=== PATIENT | female | born 1990 | race Caucasian/White ===

== ENCOUNTER 2020-06-26 10:39 | Emergency (ER) | payer SELFPAY ==
[2020-06-26] MEDS ORDERED: ONDANSETRON 4 MG/2 ML VIAL ONE (11:13)
[2020-06-26] MEDS ORDERED: NA CHLORIDE 0.9% 1,000 ML ONE (11:13)
[2020-06-26 11:27] LABS: Urine Blood NEGATIVE (NEG); Urine Glucose NEGATIVE (NEG); Urine Protein NEGATIVE (NEG); Urine Specific Gravity >1.030 (1.005-1.030)
[2020-06-26 11:34] LABS: Absolute Lymphocytes (CBC) 1.1 K/uL (0.7-4.9); Basophils % 0.3 % (0-1.3); Hematocrit 45.2 % (36.0-45.0); Lymphocytes % 11.6 % (15.3-44.8); MPV 9.2 fL (7.6-11.3); RBC Red Blood Cell Count 5.13 M/uL (3.86-4.86)
[2020-06-26 11:50] LABS: Albumin 3.9 g/dL (3.4-5.0); Bilirubin Direct 0.2 mg/dL (0-0.2); Bilirubin Total 0.7 mg/dL (0.2-1.0)
--- NOTE | 2020-06-26 12:01 | ER ---
Nurse's Notes [facility] Name: Bessie Espinosa Age: 30 yrs Sex: Female : 1990 Arrival Date: 06/26/2020 Time: 10:42 Bed 20 Private MD: Diagnosis: Upper abdominal pain, unspecified;Nausea with vomiting, unspecified Presentation: 06/26 10:46 Chief complaint: Patient states: Severe upper abd pain with N/V/D since 4 am. No fever. ll1 Coronavirus screen: Client denies travel out of the [place] in the last 14 days. At this time, the client does not indicate any symptoms associated with coronavirus-19. Ebola Screen: Patient denies travel to an Ebola-affected area in the 21 days before illness onset. Initial Sepsis Screen: Does the patient meet any 2 criteria? HR > 90 bpm. No. Patient's initial sepsis screen is negative. Risk Assessment: Do you want to hurt yourself or someone else? Patient reports no desire to harm self or others. Onset of symptoms was June 26, 2020. 10:46 Method Of Arrival: Ambulatory 1 10:46 Acuity: JASON 3 ll1 Triage Assessment: 10:50 General: Appears in no apparent distress. uncomfortable, Behavior is cooperative, bp appropriate for age, anxious. Pain: Complains of pain in abdomen. EENT: No deficits noted. Neuro: No deficits noted. Cardiovascular: No deficits noted. Respiratory: No deficits noted. GI: Reports nausea, vomiting. : No signs and/or symptoms were reported regarding the genitourinary system. Derm: No deficits noted. Musculoskeletal: No deficits noted. Historical: - Allergies: 10:48 No Known Allergies; ll1 - PMHx: 10:48 gastric issues; ll1 - PSHx: 10:48 ; ll1 - Immunization history:: Flu vaccine is not up to date. - Social history:: Smoking status: Patient reports the use of cigarette tobacco products, smokes one-half pack cigarettes per day. Screenin:16 Abuse screen: Denies threats or abuse. Denies injuries from another. Nutritional bp screening: No deficits noted. Tuberculosis screening: No symptoms or risk factors identified. Fall Risk None identified. Assessment: 10:50 General: SEE TRIAGE NOTE. bp 11:50 Reassessment: ALL CURRENT ORDERS COMPLETED, VS STABLE ON MONITOR. bp 12:32 Reassessment: PT D/C HOME AMBULATORY, DX WITH UPPER ABDOMINAL PAIN. bp 12:34 GI: Bowel sounds present X 4 quads. bp Vital Signs: 10:46 BP 120 / 97; Pulse 100; Resp 17; Temp 98.9; Pulse Ox 99% ; Weight 58.97 kg; Height 5 ll1 ft. 2 in. (157.48 cm); Pain 0/10; 11:16 BP 137 / 105; Pulse 72; Resp 16; Pulse Ox 99% ; bp 11:50 BP 103 / 74; Pulse 71; Resp 16; Pulse Ox 100% ; bp 10:46 Body Mass Index 23.78 (58.97 kg, 157.48 cm) ll1 ED Course: 10:42 Patient arrived in ED. mr 10:43 Lexa Cuca, [facility]K [facility]. kb 10:43 Kel Hernandez MD is Attending Physician. kb 10:47 Triage completed. ll1 10:48 Arm band placed on Patient placed in an exam room, on a stretcher. ll1 10:55 Richardson Middleton, RN is Primary Nurse. bp 11:13 Inserted saline lock: 22 gauge in right forearm, using aseptic technique. Blood bp collected. 11:16 Patient has correct armband on for positive identification. Bed in low position. Call bp light in reach. Side rails up X2. 12:32 No provider procedures requiring assistance completed. IV discontinued, intact, bp bleeding controlled, No redness/swelling at site. Pressure dressing applied. Administered Medications: 11:13 Drug: NS 0.9% 1000 ml Route: IV; Rate: 1000 ml; Site: right forearm; bp 12:34 Follow up: IV Status: Completed infusion; IV Intake: 1000ml bp 11:13 Drug: Zofran (Ondansetron) 4 mg Route: IVP; Site: right forearm; bp 11:52 Follow up: Response: Nausea is decreased bp Intake: 12:34 IV: 1000ml; Total: 1000ml. bp Outcome: 12:00 Discharge ordered by . kb 12:33 Discharged to home ambulatory. bp 12:33 Condition: stable 12:33 Discharge instructions given to patient, Instructed on discharge instructions, follow up and referral plans. the need for admit, medication usage, Demonstrated understanding of instructions, follow-up care, medications, Prescriptions given X 2. 12:34 Patient left the ED. bp Signatures: Cuca Lindquist, Nathaly Ricketts Brian, RN RN bp Agnes Floyd RN RN ll1
--- NOTE | 2020-06-26 12:01 | EDPHYS ---
Physician Documentation [facility] Name: Bessie Espinosa Age: 30 yrs Sex: Female : 1990 Arrival Date: 06/26/2020 Time: 10:42 Bed 20 Private MD: ED Physician Kel Hernandez HPI: 06/26 11:58 This 30 yrs old Female presents to ER via Ambulatory with complaints of kb Abdominal Pain, Vomiting. 11:58 The patient presents with abdominal pain in the upper abdomen. Onset: The kb symptoms/episode began/occurred this morning. The symptoms do not radiate. Associated signs and symptoms: Pertinent positives: nausea, vomiting, and diarrhea, Pertinent negatives: fever. The symptoms are described as intermittent. Modifying factors: The symptoms are alleviated by nothing, the symptoms are aggravated by nothing. Severity of pain: At its worst the pain was moderate in the emergency department the pain has resolved. The patient has experienced similar episodes in the past, multiple times. The patient has not recently seen a physician. Pt reports intermittent n/v/d and upper abd pain that started this morning. States this has happened several times in the past and the GI cannot figure out why. This time the pain was worse than it had been in a while so she came in to get treatment.. Historical: - Allergies: 10:48 No Known Allergies; ll1 - PMHx: 10:48 gastric issues; ll1 - PSHx: 10:48 ; ll1 - Immunization history:: Flu vaccine is not up to date. - Social history:: Smoking status: Patient reports the use of cigarette tobacco products, smokes one-half pack cigarettes per day. ROS: 11:58 Constitutional: Negative for fever, chills, and weight loss, Cardiovascular: Negative kb for chest pain, palpitations, and edema, Respiratory: Negative for shortness of breath, cough, wheezing, and pleuritic chest pain, Back: Negative for injury and pain, MS/Extremity: Negative for injury and deformity, Skin: Negative for injury, rash, and discoloration, Neuro: Negative for headache, weakness, numbness, tingling, and seizure. 11:58 Abdomen/GI: Positive for abdominal pain, nausea, vomiting, and diarrhea, Negative for constipation, abdominal distension. Exam: 11:58 Constitutional: This is a well developed, well nourished patient who is awake, alert, kb and in no acute distress. Head/Face: Normocephalic, atraumatic. Chest/axilla: Normal chest wall appearance and motion. Nontender with no deformity. No lesions are appreciated. Cardiovascular: Regular rate and rhythm with a normal S1 and S2. No gallops, murmurs, or rubs. Normal PMI, no JVD. No pulse deficits. Respiratory: Lungs have equal breath sounds bilaterally, clear to auscultation and percussion. No rales, rhonchi or wheezes noted. No increased work of breathing, no retractions or nasal flaring. Abdomen/GI: Soft, non-tender, with normal bowel sounds. No distension or tympany. No guarding or rebound. No evidence of tenderness throughout. Back: No spinal tenderness. No costovertebral tenderness. Full range of motion. Skin: Warm, dry with normal turgor. Normal color with no rashes, no lesions, and no evidence of cellulitis. MS/ Extremity: Pulses equal, no cyanosis. Neurovascular intact. Full, normal range of motion. Neuro: Awake and alert, GCS 15, oriented to person, place, time, and situation. Cranial nerves II-XII grossly intact. Motor strength 5/5 in all extremities. Sensory grossly intact. Cerebellar exam normal. Normal gait. Vital Signs: 10:46 BP 120 / 97; Pulse 100; Resp 17; Temp 98.9; Pulse Ox 99% ; Weight 58.97 kg; Height 5 ll1 ft. 2 in. (157.48 cm); Pain 0/10; 11:16 BP 137 / 105; Pulse 72; Resp 16; Pulse Ox 99% ; bp 11:50 BP 103 / 74; Pulse 71; Resp 16; Pulse Ox 100% ; bp 10:46 Body Mass Index 23.78 (58.97 kg, 157.48 cm) ll1 MDM: 10:49 Patient medically screened. kb 11:55 Data reviewed: vital signs, nurses notes. Data interpreted: Pulse oximetry: on room air kb is 100 %. Interpretation: normal. ED course: PT feeling better after medication. 11:59 Counseling: I had a detailed discussion with the patient and/or guardian regarding: the kb historical points, exam findings, and any diagnostic results supporting the discharge/admit diagnosis, lab results, the need for outpatient follow up, a family practitioner, a mechanical manager, to return to the emergency department if symptoms worsen or persist or if there are any questions or concerns that arise at home. 06/26 10:50 Order name: Basic Metabolic Panel; Complete Time: 11:50 kb 06/26 10:50 Order name: CBC with Diff; Complete Time: 11:45 kb 06/26 10:50 Order name: Hepatic Function; Complete Time: 11:50 kb 06/26 10:50 Order name: Lipase; Complete Time: 11:50 kb 06/26 11:22 Order name: Urine Dipstick--Ancillary (enter results); Complete Time: 11:31 hb 06/26 11:22 Order name: Urine --Ancillary (enter results); Complete Time: 11:31 hb 06/26 10:50 Order name: IV Saline Lock; Complete Time: 11:14 kb 06/26 10:50 Order name: Labs collected and sent; Complete Time: 11:14 kb 06/26 11:52 Order name: PO challenge; Complete Time: 12:04 kb Administered Medications: 11:13 Drug: NS 0.9% 1000 ml Route: IV; Rate: 1000 ml; Site: right forearm; bp 12:34 Follow up: IV Status: Completed infusion; IV Intake: 1000ml bp 11:13 Drug: Zofran (Ondansetron) 4 mg Route: IVP; Site: right forearm; bp 11:52 Follow up: Response: Nausea is decreased bp Disposition: 17:56 Co-signature as Attending Physician, Kel Hernandez MD. rn Disposition: 06/26/20 12:00 Discharged to Home. Impression: Upper abdominal pain, unspecified, Nausea with vomiting, unspecified. - Condition is Stable. - Discharge Instructions: Viral Gastroenteritis, Adult, [id number]. - Prescriptions for Bentyl 20 mg Oral Tablet - take 1 tablet by ORAL route every 6 hours As needed; 20 tablet. Zofran 4 mg Oral Tablet - take 1 tablet by ORAL route every 6 hours As needed; 20 tablet. - Medication Reconciliation Form, Thank You Letter, Antibiotic Education, Prescription Opioid Use form. - Follow up: Emergency Department; When: As needed; Reason: Worsening of condition. Follow up: Private Physician; When: 2 - 3 days; Reason: Recheck today's complaints, Continuance of care, Re-evaluation by your physician. Signatures: Dispatcher [employer] [facility] Cuca Lindquist, TRAFFIC OPERATIONS ENGINEER-C TRAFFIC OPERATIONS ENGINEER-Ckb Kel Hernandez MD MD rn Richardson Middleton, RN RN Agnes Chang RN RN ll1 Corrections: (The following items were deleted from the chart) 11:30 11:25 URINE --ANCILLARY+UC.LAB.BRZ ordered. [facility] 12:34 12:00 06/26/2020 12:00 Discharged to Home. Impression: Upper abdominal pain, bp unspecified; Nausea with vomiting, unspecified. Condition is Stable. Forms are Medication Reconciliation Form, Thank You Letter, Antibiotic Education, Prescription Opioid Use. Follow up: Emergency Department; When: As needed; Reason: Worsening of condition. Follow up: Private Physician; When: 2 - 3 days; Reason: Recheck today's complaints, Continuance of care, Re-evaluation by your physician. kb
[2020-06-26 12:54] VITALS: TEMP 98.9
[2020-06-26 12:57] VITALS: BP 103/74; O2SAT 100
== END 2020-06-26 12:34 | disposition home or self-care (01) ==
LOC: ER 10:39
DX: R11.2 Nausea with vomiting, unspecified (principal); F17.210 Nicotine dependence, cigarettes, uncomplicated
CPT/HCPCS: 36415; 80048; 80076; 81003; 81025; 83690; 85025; 96361; 96374; 99284; J2405; J7030

== ENCOUNTER → 2023-11-09 | Emergency (ER) | payer BC, SELFPAY ==
[~2023-11-09] MED LIST: HYDROCODONE/APAP 10/325 TAB ONE; NA CHLORIDE 0.9% 1,000 ML ONE; POTASSIUM CL SA 10 MEQ TAB PO ONE
[2023-11-09 16:05] LABS: Absolute Lymphocytes (CBC) 1.7 K/uL (0.7-4.9); Hematocrit 38.7 % (36.0-45.0); Lymphocytes % 17.8 % (15.3-44.8); MPV 8.1 fL (7.6-11.3); Platelets 204 thou/uL (152-406); RBC Red Blood Cell Count 4.66 M/uL (3.86-4.86)
[2023-11-09 16:22] LABS: Potassium 3.2 mEq/L (3.5-5.1)
--- NOTE | 2023-11-09 16:55 | RAD REPORT ---
EXAM DESCRIPTION: US - Transvaginal OB - 11/09/2023 4:47 pm CLINICAL HISTORY: ABD PAIN COMPARISON: OBSTETRICAL COMPLETE dated 09/09/2012 FINDINGS: Small fluid collection noted in the lower uterine segment. The collection is irregular in shape. No pole identified. No heart tones. The right ovary is volume of 10 cc. The left ovary is volume of 3.4 cc. Corpus luteum in the right ov janelle. Bilateral ovarian blood flow is present. IMPRESSION: Irregular fluid collection in the lower uterine segment concerning for an abnormal gesta tional sac, possibly due to failed first trimester . Suggest correlating with beta HCG and/o r follow-up ultrasound to reassess. Bilateral ovarian blood flow.
--- NOTE | 2023-11-09 17:30 | EDPHYS ---
Physician Documentation [facility] Name: Bessie Espinosa Age: 33 yrs Sex: Female : 1990 Arrival Date: 11/09/2023 Time: 15:24 Bed 12 Private MD: ED Physician Ricky Youssef HPI: 11/09 17:31 This 33 yrs old Female presents to ER via Ambulatory with complaints of psbl kb miscarriage. 17:32 Patient is a 33-year-old female who presents for vaginal bleeding and suprapubic kb cramping that started 4 days ago. States her OB has confirmed a spontaneous and she was waiting for products to pass. States he began passing on and her OB told her to follow back up with her after her bleeding stopped. States she presents today because she has been passing large clots and she wanted to get checked out.. Historical: - Allergies: 15:35 No Known Allergies; ko1 - Home Meds: 15:35 None [Active]; ko1 - PMHx: 15:35 gastric issues; ko1 - PSHx: 15:35 section; ko1 - Immunization history:: Adult Immunizations up to date. - Social history:: Smoking status: Patient reports the use of cigarette tobacco products, denies chronic smoking, but will smoke occasionally. ROS: 17:30 Constitutional: Negative for fever, chills, and weight loss, kb 17:30 Abdomen/GI: Positive for abdominal pain, of the suprapubic area, 17:30 : Positive for vaginal bleeding, 17:30 All other systems are negative, Exam: 17:30 Constitutional: This is a well developed, well nourished patient who is awake, alert, kb and in no acute distress. Head/Face: Normocephalic, atraumatic. ENT: Moist Mucous membranes Cardiovascular: Regular rate Respiratory: Respirations even and unlabored. No increased work of breathing. Talking in full sentences Skin: Warm, dry with normal turgor. Normal color. MS/ Extremity: Pulses equal, no cyanosis. Neurovascular intact. Full, normal range of motion. Neuro: Awake and alert, GCS 15, oriented to person, place, time, and situation. Moves all extremities. Normal gait. 17:30 Abdomen/GI: Inspection: abdomen appears normal, Bowel sounds: normal, Palpation: soft, in all quadrants, mild abdominal tenderness, in the suprapubic area, Vital Signs: 15:33 BP 150 / 104; Pulse 115; Resp 18; Temp 98.1; Pulse Ox 100% ; ko1 17:37 BP 131 / 61; Pulse 76; Resp 16; Pulse Ox 100% ; bp MDM: 15:29 Patient medically screened. kb 17:30 Data reviewed: vital signs, nurses notes. kb 17:33 Differential diagnosis: threatened Ab, inevitable Ab, complete Ab, retained Ab. kb Counseling: I had a detailed discussion with the patient and/or guardian regarding the historical points, exam findings, and any diagnostic results supporting the discharge/admit diagnosis, lab results, radiology results, the need for outpatient follow up, an OB/Gyne specialist, to return to the emergency department if symptoms worsen or persist or if there are any questions or concerns that arise at home. 11/09 15:29 Order name: Abo/rh Typing; Complete Time: 16:36 kb 11/09 15:29 Order name: Basic Metabolic Panel; Complete Time: 16:45 kb 11/09 15:29 Order name: CBC with Diff; Complete Time: 16:16 kb 11/09 15:29 Order name: Quantitative Hcg; Complete Time: 16:45 kb 11/09 15:29 Order name: US Transvaginal Ob; Complete Time: 17:04 kb 11/09 15:29 Order name: IV Saline Lock; Complete Time: 15:56 kb 11/09 15:29 Order name: Labs collected and sent; Complete Time: 15:56 kb 11/09 15:29 Order name: NPO; Complete Time: 15:56 kb Administered Medications: 16:48 Drug: [place] PO 10 mg-325 mg 1 tabs PO once Route: PO; bp 17:32 Follow up: Response: No adverse reaction bp 16:48 Drug: NS 0.9% IV 1000 ml IV at 1000 ml once Route: IV; Rate: 1000 ml; Site: right bp antecubital; 17:43 Follow up: IV Status: Completed infusion; IV Intake: 1000ml bp 17:31 Drug: Potassium Chloride PO 40 mEq PO once Route: PO; bp 17:32 Follow up: Response: No adverse reaction bp Disposition: 18:32 Co-signature as Attending Physician, Ricky Youssef MD I reviewed the patient's care rt provided by the Advanced Practice Provider and agree with the diagnosis and treatment plan. Disposition Summary: 11/09/23 17:30 Discharge Ordered Notes: Location: Home kb Condition: Stable kb Diagnosis - Complete or unspecified spontaneous without complication kb Followup: kb - With: Emergency Department - When: As needed - Reason: Worsening of condition Followup: kb - With: Private Physician - When: 2 - 3 days - Reason: Recheck today's complaints, Continuance of care, Re-evaluation by your physician Discharge Instructions: - Discharge Summary Sheet kb - Miscarriage, [id number] kb Forms: - Medication Reconciliation Form kb - Thank You Letter kb - Antibiotic Education kb - Prescription Opioid Use kb - Patient Portal Instructions kb - Leadership Thank You Letter kb Signatures: Dispatcher [employer] EDCuca Ruiz FNP-C FNP-Richardson Dhillon, RN RN bp Nandini Porter RN RN ko1 Ricky Youssef MD MD rt Corrections: (The following items were deleted from the chart) 17:31 17:30 Crutch training provided to patient and/or family. Return demonstration given kb kb
--- NOTE | 2023-11-09 17:30 | ER ---
Nurse's Notes [facility] Name: Bessie Espinosa Age: 33 yrs Sex: Female : 1990 Arrival Date: 11/09/2023 Time: 15:24 Bed 12 Private MD: Diagnosis: Complete or unspecified spontaneous without complication Presentation: 11/09 15:33 Chief complaint: Patient states: has been diagnosed with a miscarriage, has had a lot ko1 of large clots and heavy bleeding since Friday. Is getting very shaky. Coronavirus screen: At this time, the client does not indicate any symptoms associated with coronavirus-19. Ebola Screen: No symptoms or risks identified at this time. Initial Sepsis Screen: Does the patient meet any 2 criteria? No. Patient's initial sepsis screen is negative. Does the patient have a suspected source of infection? No. Patient's initial sepsis screen is negative. Risk Assessment: Do you want to hurt yourself or someone else? Patient reports no desire to harm self or others. Onset of symptoms was November 09, 2023. 15:33 Method Of Arrival: Ambulatory ko1 15:33 Acuity: JASON 3 ko1 Triage Assessment: 15:35 General: Appears in no apparent distress. Behavior is cooperative, appropriate for age, ko1 anxious. Pain: Complains of pain in right lower quadrant and left lower quadrant. Historical: - Allergies: 15:35 No Known Allergies; ko1 - Home Meds: 15:35 None [Active]; ko1 - PMHx: 15:35 gastric issues; ko1 - PSHx: 15:35 section; ko1 - Immunization history:: Adult Immunizations up to date. - Social history:: Smoking status: Patient reports the use of cigarette tobacco products, denies chronic smoking, but will smoke occasionally. Screenin:37 [facility] ED Fall Risk Assessment (Adult) History of falling in the last 3 months, bp including since admission No falls in past 3 months (0 pts). Abuse screen: Denies threats or abuse. Denies injuries from another. Nutritional screening: No deficits noted. Tuberculosis screening: No symptoms or risk factors identified. Assessment: 15:45 General: SEE TRIAGE NOTE. bp 16:49 Reassessment: PT RETURNED FROM [place] bp 17:37 Reassessment: DC HOME AMBULATORY WITH FAMILY. bp Vital Signs: 15:33 BP 150 / 104; Pulse 115; Resp 18; Temp 98.1; Pulse Ox 100% ; ko1 17:37 BP 131 / 61; Pulse 76; Resp 16; Pulse Ox 100% ; bp ED Course: 15:28 Patient arrived in ED. ra3 15:28 Cuca Lindquist FNP-C [facility]. kb 15:28 Ricky Youssef MD is Attending Physician. kb 15:35 Triage completed. ko1 15:35 Arm band placed on right wrist. Patient placed in waiting room, Patient notified of ko1 wait time. 15:38 Richardson Middleton, RN is Primary Nurse. bp 15:56 Inserted saline lock: 18 gauge in right antecubital area, using aseptic technique. ds4 Blood collected. 16:49 US Transvaginal Ob In Process Unspecified. EDMS 17:37 Patient has correct armband on for positive identification. bp 17:37 No provider procedures requiring assistance completed. IV discontinued, intact, bp bleeding controlled, No redness/swelling at site. Pressure dressing applied. Administered Medications: 16:48 Drug: [place] PO 10 mg-325 mg 1 tabs PO once Route: PO; bp 17:32 Follow up: Response: No adverse reaction bp 16:48 Drug: NS 0.9% IV 1000 ml IV at 1000 ml once Route: IV; Rate: 1000 ml; Site: right bp antecubital; 17:43 Follow up: IV Status: Completed infusion; IV Intake: 1000ml bp 17:31 Drug: Potassium Chloride PO 40 mEq PO once Route: PO; bp 17:32 Follow up: Response: No adverse reaction bp Medication: 17:37 VIS not applicable for this client. bp Intake: 17:43 IV: 1000ml; Total: 1000ml. bp Outcome: 17:30 Discharge ordered by . kb 17:37 Discharged to home ambulatory, bp 17:37 Condition: stable 17:37 Discharge instructions given to patient, Instructed on discharge instructions, follow up and referral plans. Demonstrated understanding of instructions, follow-up care, 17:44 Patient left the ED. bp Signatures: Dispatcher [employer] EDMS Cuca Lindquist FNP-C PRISON KEEPER-Ckb Lenin Marley ds4 Richardson Middleton, RN RN bp Nandini Porter RN RN ko1 Meghna Marx ra3
[2023-11-09 18:04] VITALS: BP 131/61; TEMP 98.1; O2SAT 100
== END ==
LOC: ER 15:24
DX: O03.9 Complete or unspecified spontaneous abortion without complication (principal); F17.210 Nicotine dependence, cigarettes, uncomplicated
CPT/HCPCS: 85025; 80048; 36415; 86900; 86901; 84702; 76817; J7030